=== PATIENT | female | born 1995 | race American Indian/Alaskan Native ===

== ENCOUNTER 2019-08-16 20:01 | Outpatient (CLI) | payer MEDICAID ==
[2019-08-16 20:55] VITALS: BP 93/52
[2019-08-16] MEDS ORDERED: LACTATED RINGERS 1,000 ML IV ONE (21:52)
--- NOTE | 2019-08-16 22:20 | Ultrasound Report ---
US OB BPP wo non-stress INDICATION / CLINICAL INFORMATION: pt fall CHARLES and BPP. COMPARISON: None available. FINDINGS: Biophysical profile score is 8 of 8. Signer Name: Watson Kenny MD Signed: 08/16/2019 10:16 PM Workstation Name: [email or web address]
--- NOTE | 2019-08-16 22:20 | Ultrasound Report ---
US OB limited INDICATION / CLINICAL INFORMATION: r/o abruption CHARLES and BPP. COMPARISON: None available. FINDINGS: A viable single intrauterine gestation is demonstrated in the cephalic presentation. heart rate is 142 bpm The grade 1 placenta is posteriorly located on maternal left side without evidence of abruption. Amniotic fluid volume appears normal. IMPRESSION: 1. Posterior placenta without evidence of abruption. 2. Single viable fetus in the cephalic presentation. Signer Name: Watson Kenny MD Signed: 08/16/2019 10:15 PM Workstation Name: [id number]
[2019-08-16 22:30] LABS: Bacteria,Urine 1+ /HPF (Negative); Bilirubin,Urine NEG (Negative); Blood,Urine NEG (Negative); Color,Urine Yellow (Yellow); Mucus,Urine FEW /HPF
== END 2019-08-16 23:05 | disposition home or self-care (01) ==
LOC: TRG 20:01
PROVIDERS: ATTEND Obstetrics & Gynecology
DX: O47.03 False labor before 37 completed weeks of gestation, third trimester (principal); Z3A.33 33 weeks gestation of pregnancy; W19.XXXA Unspecified fall, initial encounter; Y93.89 Activity, other specified; Y92.89 Other specified places as the place of occurrence of the external cause; Y99.8 Other external cause status
CPT/HCPCS: 59025; 76815; 76819; 81001; 96360; J7120

== ENCOUNTER 2019-09-13 23:13 | Inpatient (IN) | payer MEDICAID ==
[2019-09-14] MEDS: OSELTAMIVIR 75 MG CAP PO SCH ×2 (01:32→15:00)
[2019-09-14] MEDS: LACTATED RINGERS 1,000 ML IV SCH ×2 (01:32→09:56)
[2019-09-14 01:37] LABS: Hematocrit 26.4 % (30.3-42.9); Hemoglobin 9.1 gm/dl (10.1-14.3); Mean Corpuscular HGB Conc 34 % (30-34); Mean Corpuscular Volume 91 fl (79-97); Platelet Count 181 K/mm3 (140-440); Red Blood Count 2.91 M/mm3 (3.65-5.03); Red Cell Distribution Width 13.2 % (13.2-15.2)
[2019-09-14 02:01] LABS: Alanine Aminotransferase 18 units/L (7-56); Albumin 3.3 g/dL (3.9-5); BUN/Creatinine Ratio 7; Blood Urea Nitrogen 4 mg/dL (7-17); Calcium 8.3 mg/dL (8.4-10.2); Hemolysis Index 12
[2019-09-14] MEDS ORDERED: ACETAMINOPHEN 325 MG TAB PO PRN ×2 (02:41→05:09)
[2019-09-14] MEDS: guaiFENesin 100 MG/5 ML ORAL LIQD PO PRN ×2 (03:04→07:48)
--- NOTE | 2019-09-14 05:10 | History and Physical Report ---
History of Present Illness Date of examination: 09/14/19 Date of admission: 09/14/19 Chief complaint: Contractions, nasal congestion, runny nose, coughing, fever, chills, body aches, sore throat, cold sweats, SOB and wheezing History of present illness: 23yo G 3 P 1 at 37 weeks 5 days here with c/o contractions, nasal congestion, runny nose, coughing, fever, chills, body aches, sore throat, and cold sweats that started 5 days ago and worsening. She also reports SOB and wheezing. She took some Tylenol at home prior to coming to the hospital. She reports +FMs but denies VB or LOF. She reports feeling better after IV hydration and Robitussin. SOB and wheezing resolved. She is a [employer] pt who initiated care at 26 wk gestation. 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 LABS: AB+, Antibody Screen neg, RI, HBsAg neg, HIV neg, HSV II+, Diabetes Screen 71, GC/CT/Trich neg, GBS neg. Past History Past Medical History: no pertinent history Past Surgical History: no surgical history Social history: single, lives with family, full code. denies: smoking, alcohol abuse, prescription drug abuse, IV drug use - Obstetrical History Expected Date of Delivery: 09/29/19 Actual Gestation: 37 Week(s) 6 Day(s) : 3 Para: 1 Hx # Term Pregnancies: 1 Number of Pregnancies: 0 Spontaneous Abortions: 1 Induced : 0 Number of Living Children: 1 Medications and Allergies Allergies Allergy/AdvReac Type Severity Reaction Status Date / Time No Known Allergies Allergy Verified 08/16/19 20:27 Home Medications Medication Instructions Recorded Confirmed Last Taken Type Vit-Fe Fumar-FA [ 1 tab PO QDAY 09/14/19 09/14/19 1 Day Ago History Vitamin] ~09/13/19 Active Meds: Active Medications Acetaminophen (Tylenol) 650 mg PO Q8H PRN PRN Reason: Pain MILD(1-3)/Fever >100.5/GARCIA Last Admin: 09/14/19 03:03 Dose: 650 mg Documented by: Guaifenesin (Robitussin) 200 mg PO Q4H PRN PRN Reason: Cough Last Admin: 09/14/19 03:04 Dose: 200 mg Documented by: Lactated Ringer's (Lactated Ringers) 1,000 mls @ 125 mls/hr IV DIRECT ROSALES Last Admin: 09/14/19 01:32 Dose: 125 mls/hr Documented by: Oseltamivir Phosphate (Tamiflu) 75 mg PO BID ROSALES Stop: 09/18/19 10:01 Last Admin: 09/14/19 01:32 Dose: 75 mg Documented by: Review of Systems All systems: negative Constitutional: fever, chills, sweats Ears, nose, mouth and throat: nasal congestion, sore throat Cardiovascular: shortness of breath Respiratory: wheezing - Vital Signs Vital signs: Vital Signs Pulse BP 137 H 120/68 09/13/19 23:33 09/13/19 23:33 Temp Pulse Resp BP Pulse Ox 100 F H 109 H 110/69 99 09/14/19 02:30 09/14/19 04:59 09/14/19 04:22 09/14/19 04:59 - Physical Exam Cardiovascular: Regular rate Lungs: Positive: Clear to auscultation, Normal air movement Abdomen: Positive: normal appearance, soft - Obstetrical FHR: auscultation normal, category 1 FHR comments: baseline 150, moderate variability, 15x15 accels, no decels Uterine Contraction Monitor Mode: External Cervical Dilatation: 3.5 Cervical Effacement Percentage: 50 station: -2 Uterine Contraction Pattern: Irregular Results Result Diagrams: 09/14/19 01:24 09/14/19 01:24 Abnormal lab results 09/14/19 09/14/19 Range/Units 01:24 01:24 RBC 2.91 L (3.65-5.03) M/mm3 Hgb 9.1 L (10.1-14.3) gm/dl Hct 26.4 L (30.3-42.9) % Sodium 135 L (137-145) mmol/L Carbon Dioxide 18 L (22-30) mmol/L BUN 4 L (7-17) mg/dL Creatinine 0.6 L (0.7-1.2) mg/dL Calcium 8.3 L (8.4-10.2) mg/dL Albumin 3.3 L (3.9-5) g/dL All other labs normal. Assessment and Plan - Patient Problems (1) 37 weeks gestation of Current Visit: Yes Status: Acute (2) Influenza-like symptoms Current Visit: Yes Status: Acute Plan to address problem: Admit to L&D for 23-hour OBS with routine antepartum orders Rapid flu test negative; Rapid strep test negative Tamiflu, IV hydration, Tylenol and Robitussin prn initiated since patient is having flu-like symptoms CBC, CMP ordered If cervical dilation continues will admit for labor augmentation; if not anticipate discharge in 24 hrs (3) Tachycardia with heart rate 100-120 beats per minute Current Visit: Yes Status: Acute Plan to address problem: WBC 6.4 Pt is currently afebrile IV hydration in progress
[2019-09-14] MEDS: PRENATAL VIT27-FE FUMARATE-FOLIC ACID VIT TAB PO SCH ×2 (09:47→14:58)
[2019-09-14] MEDS: valACYclovir 500 MG TAB PO SCH ×2 (10:12→10:27)
[2019-09-14] MEDS ORDERED: BUTORPHANOL 2 MG/1 ML INJ IV PRN (11:44)
[2019-09-14] MEDS ORDERED: ePHEDrine SULFATE 50 MG/1 ML INJ IV PRN ×2 (11:44→14:17)
[2019-09-14] MEDS ORDERED: ONDANSETRON 4 MG/2 ML INJ IV PRN (11:44)
[2019-09-14] MEDS ORDERED: TERBUTALINE 1 MG/1 ML INJ IVP PRN (11:44)
[2019-09-14] MEDS ORDERED: NALOXONE 0.4 MG/1 ML INJ IV PRN (11:44)
[2019-09-14] MEDS ORDERED: LIDOCAINE (2%) 20 MG/1 ML VIAL 20 ML MDV INFILTRATI ONE (11:44)
[2019-09-14] MEDS ORDERED: TERBUTALINE 1 MG/1 ML INJ SUB-Q PRN (11:44)
[2019-09-14] MEDS ORDERED: MINERAL OIL 30 ML ORAL LIQD PO PRN (11:44)
--- NOTE | 2019-09-14 11:44 | Progress Note ---
Assessment and Plan A: IUP @ 37 5/7 Weeks Category I Tracing SROM GBS Negative P: Admit to L&D per Routine Orders Start Pitocin Augmentation Subjective - Subjective Date of service: 09/14/19 Patient reports: loss of fluid (large amount of clear fluid just started gushing out), movement normal, contractions, other (states s/s of flu have greatly improved) Objective - Vital Signs Vital Signs: Vital Signs - 12hr 09/13/19 09/13/19 09/13/19 23:46 23:51 23:56 Temperature Pulse Rate 121 H 115 H 119 H Respiratory Rate Blood Pressure Blood Pressure [Right] O2 Sat by Pulse 96 97 96 Oximetry 09/14/19 09/14/19 09/14/19 00:01 00:06 00:11 Temperature Pulse Rate 117 H 123 H 121 H Respiratory Rate Blood Pressure Blood Pressure [Right] O2 Sat by Pulse 96 95 96 Oximetry 09/14/19 09/14/19 09/14/19 00:13 00:50 02:30 Temperature 99.4 F 100 F H Pulse Rate 120 H Respiratory Rate Blood Pressure Blood Pressure [Right] O2 Sat by Pulse 94 Oximetry 09/14/19 09/14/19 09/14/19 04:00 04:19 04:22 Temperature 98.2 F Pulse Rate 118 H 109 H Respiratory Rate Blood Pressure 110/69 Blood Pressure [Right] O2 Sat by Pulse 97 Oximetry 09/14/19 09/14/19 09/14/19 04:24 04:29 04:34 Temperature Pulse Rate 114 H 117 H 108 H Respiratory Rate Blood Pressure Blood Pressure [Right] O2 Sat by Pulse 98 97 99 Oximetry 09/14/19 09/14/19 09/14/19 04:39 04:44 04:49 Temperature Pulse Rate 111 H 104 H 114 H Respiratory Rate Blood Pressure Blood Pressure [Right] O2 Sat by Pulse 98 98 97 Oximetry 09/14/19 09/14/19 09/14/19 04:54 04:56 04:59 Temperature Pulse Rate 102 H 105 H 109 H Respiratory Rate Blood Pressure Blood Pressure [Right] O2 Sat by Pulse 97 93 99 Oximetry 09/14/19 09/14/19 09/14/19 05:04 05:09 05:14 Temperature Pulse Rate 112 H 107 H 110 H Respiratory Rate Blood Pressure Blood Pressure [Right] O2 Sat by Pulse 99 99 100 Oximetry 09/14/19 09/14/19 09/14/19 05:19 05:24 05:29 Temperature Pulse Rate 107 H 109 H 110 H Respiratory Rate Blood Pressure Blood Pressure [Right] O2 Sat by Pulse 99 99 98 Oximetry 09/14/19 09/14/19 09/14/19 05:34 05:39 05:44 Temperature Pulse Rate 110 H 108 H 107 H Respiratory Rate Blood Pressure Blood Pressure [Right] O2 Sat by Pulse 99 99 96 Oximetry 09/14/19 09/14/19 09/14/19 05:49 05:54 05:59 Temperature Pulse Rate 105 H 107 H 105 H Respiratory Rate Blood Pressure Blood Pressure [Right] O2 Sat by Pulse 98 98 98 Oximetry 09/14/19 09/14/19 09/14/19 06:04 06:10 06:15 Temperature Pulse Rate 114 H 100 H 105 H Respiratory Rate Blood Pressure Blood Pressure [Right] O2 Sat by Pulse 81 L 98 62 L Oximetry 09/14/19 09/14/19 09/14/19 06:20 06:25 06:30 Temperature Pulse Rate 105 H 104 H 102 H Respiratory Rate Blood Pressure Blood Pressure [Right] O2 Sat by Pulse 95 97 97 Oximetry 09/14/19 09/14/19 09/14/19 06:35 06:40 06:43 Temperature Pulse Rate 105 H 104 H 93 H Respiratory Rate Blood Pressure Blood Pressure [Right] O2 Sat by Pulse 96 97 94 Oximetry 09/14/19 09/14/19 09/14/19 06:45 07:20 07:22 Temperature 98.6 F Pulse Rate 100 H 111 H 111 H Respiratory 20 Rate Blood Pressure 101/55 Blood Pressure 101/55 [Right] O2 Sat by Pulse 99 Oximetry 09/14/19 09/14/19 09/14/19 08:08 08:14 08:16 Temperature Pulse Rate 31 L 41 L Respiratory Rate Blood Pressure Blood Pressure [Right] O2 Sat by Pulse 48 L 74 L 73 L Oximetry 09/14/19 09/14/19 09/14/19 08:19 08:25 08:30 Temperature Pulse Rate 94 H 85 Respiratory Rate Blood Pressure Blood Pressure [Right] O2 Sat by Pulse 57 L 55 L 54 L Oximetry 09/14/19 09/14/19 09/14/19 08:36 08:41 08:44 Temperature Pulse Rate 96 H 57 L Respiratory Rate Blood Pressure Blood Pressure [Right] O2 Sat by Pulse 60 L 0 L 65 L Oximetry 09/14/19 09/14/19 08:46 10:13 Temperature Pulse Rate 57 L 53 L Respiratory Rate Blood Pressure Blood Pressure [Right] O2 Sat by Pulse 68 L 96 Oximetry - Exam Breasts: normal Cardiovascular: Regular rate Lungs: Clear to auscultation, Normal air movement Abdomen: Present: normal appearance, soft Uterus: Present: normal, firm, fundal height above umbilicus FHR: category 1 Uterine Contraction Monitor Mode: External Cervical Dilatation: 4.5 (leaking a large amount of clear fluid) Cervical Effacement Percentage: 70 station: -2 Uterine Contraction Pattern: Irregular Uterine Tone Measurement Phase: Resting Uterine Contraction Intensity: Moderate Extremities: normal - Labs Labs: Abnormal Labs 09/14/19 09/14/19 01:24 01:24 RBC 2.91 L Hgb 9.1 L Hct 26.4 L Sodium 135 L Carbon Dioxide 18 L BUN 4 L Creatinine 0.6 L Calcium 8.3 L Albumin 3.3 L Laboratory Results - last 24 hr 09/14/19 09/14/19 09/14/19 01:24 01:24 01:24 WBC 6.4 RBC 2.91 L Hgb 9.1 L Hct 26.4 L MCV 91 MCH 31 MCHC 34 RDW 13.2 Plt Count 181 Sodium 135 L Potassium 3.6 Chloride 102.8 Carbon Dioxide 18 L Anion Gap 18 BUN 4 L Creatinine 0.6 L Estimated GFR > 60 BUN/Creatinine Ratio 7 Glucose 79 Calcium 8.3 L Total Bilirubin 0.50 AST 27 ALT 18 Alkaline Phosphatase 111 Total Protein 6.3 Albumin 3.3 L Albumin/Globulin Ratio 1.1 Influenza A (Rapid) Negative Influenza B (Rapid) Negative Group A Strep Rapid 09/14/19 05:02 WBC RBC Hgb Hct MCV MCH MCHC RDW Plt Count Sodium Potassium Chloride Carbon Dioxide Anion Gap BUN Creatinine Estimated GFR BUN/Creatinine Ratio Glucose Calcium Total Bilirubin AST ALT Alkaline Phosphatase Total Protein Albumin Albumin/Globulin Ratio Influenza A (Rapid) Influenza B (Rapid) Group A Strep Rapid Negative
[2019-09-14] MEDS ORDERED: OXYTOCIN DRIP 30 UNITS/500 ML BAG IV SCH (12:00)
[2019-09-14] MEDS ORDERED: LACTATED RINGERS 1,000 ML IV SCH (12:00)
[2019-09-14 12:21] LABS: Hematocrit 25.8 % (30.3-42.9); Hemoglobin 8.8 gm/dl (10.1-14.3); Mean Corpuscular HGB Conc 34 % (30-34); Mean Corpuscular Volume 91 fl (79-97); Platelet Count 174 K/mm3 (140-440); Red Blood Count 2.83 M/mm3 (3.65-5.03); Red Cell Distribution Width 13.5 % (13.2-15.2)
[2019-09-14] MEDS ORDERED: DEXMEDETOMIDINE 200 MCG/2 ML VIAL IV ONE (13:39)
[2019-09-14] MEDS ORDERED: NALOXONE 2 MG/2 ML INJ IV PRN (14:17)
--- NOTE | 2019-09-14 14:21 | Anesthesia Consultation ---
Anesthesia Consult and Med Hx Date of service: 09/14/19 - Airway Anesthetic Teeth Evaluation: Poor ROM Head & Neck: Adequate Mental/Hyoid Distance: Adequate Mallampati Class: Class II Intubation Access Assessment: Probably Good - Pulmonary Exam CTA: No (wheezing, URI ) - Cardiac Exam Cardiac Exam: RRR - Pre-Operative Health Status ASA Pre-Surgery Classification: ASA2 Proposed Anesthetic Plan: Epidural - Pulmonary Hx Smoking: Yes (quit 9 months ago) Hx Asthma: No Hx Respiratory Symptoms: Yes (URI) SOB: No COPD: No Home Oxygen Therapy: No Hx Pneumonia: No Hx Sleep Apnea: No - Cardiovascular System Hx Hypertension: No Hx Coronary Artery Disease: No Hx Heart Attack/AMI: No Hx Angina: No Hx Percutaneous Transluminal Coronary Angioplasty (PTCA): No Hx Cardia Arrhythmia: No Hx Pacemaker: No Hx Internal Defibrillator: No Hx Valvular Heart Disease: No Hx Heart Murmur: No Hx Peripheral Vascular Disease: No - Central Nervous System Hx Neuromuscular Disorder: No Hx Seizures: No CVA: No Hx Back Pain: No Hx Psychiatric Problems: No - Gastrointestinal Hx Ulcer: No Hx Gastroesophageal Reflux Disease: No - Endocrine Hx Renal Disease: No Hx End Stage Renal Disease: No Hx Cirrhosis: No Hx Liver Disease: No Hx Insulin Dependent Diabetes: No Hx Non-Insulin Dependent Diabetes: No Hx Thyroid Disease: No Hx Hypothyroidism: No Hx Hyperthyroidism: No - Hematic Hx Anemia: Yes Hx Sickle Cell Disease: No - Other Systems Hx Alcohol Use: No Hx Substance Use: No Hx Cancer: No Hx Obesity: No
[2019-09-14] MEDS ORDERED: fentaNYL-BUPIV 2 MCG/ML-0.125% 200 MCG/100 ML BAG EPIDURAL SCH (15:00)
[2019-09-14] MEDS ORDERED: miSOPROStol 200 MCG TAB ONE (15:51)
[2019-09-14] MEDS ORDERED: OXYTOCIN 10 UNIT/1 ML INJ ONE (15:52)
[2019-09-14] MEDS ORDERED: HYDROcodone/ACETAMINOPHEN 5-325 MG TAB PO PRN (16:05)
[2019-09-14] MEDS ORDERED: diphenhydrAMINE 25 MG CAP PO PRN (16:05)
[2019-09-14] MEDS: OXYTOCIN 20 UNIT/1000ML DRIP 20 UNITS/1,000 ML BAG IV SCH ×2 (16:08→16:55)
--- NOTE | 2019-09-14 16:19 | Procedure Note ---
OB Delivery Note - Delivery Date of Delivery: 09/14/19 (1544) Surgeon: CONCHIS CESAR Estimated blood loss: other (350) - Vaginal Delivery presentation: vertex Delivery position: OA Delivery induction: oxytocin Delivery augmentation: pitocin Delivery monitor: external FHT, external uterine Route of delivery: Delivery placenta: spontaneous Delivery cord: 3 umbilical vessels Episiotomy: none Delivery laceration: none Anesthesia: epidural Delivery comments: of a live 6'0 male over a intact perineum under epidural anesthesia with Apgars of 8 and 9 at 1544 on 09/14/2019. Infant directly to maternal abd/chest, skin to skin contact. Spontaneous delivery of placenta complete and intact with Valle side presenting at 1548. Heavy uterine bleeding with placental delivery. 1000mcg of Cytotec placed per rectum; 10U of Pitocin given IM. Uterine bleeding became light with external uterine massage. Delayed cord clamping and cutting; Cord cut by Father of the Baby. - A at 1 minute: 8 at 5 minutes: 9 Gender: Male (6'0)
[2019-09-14] MEDS: FERROUS SULFATE 325 MG TAB PO SCH (23:07)
[2019-09-14] MEDS: IBUPROFEN 600 MG TAB PO SCH (23:07)
[2019-09-15] MEDS: IBUPROFEN 600 MG TAB PO SCH ×5 (04:43→21:18)
[2019-09-15 04:47] LABS: Hematocrit 23.6 % (30.3-42.9)
--- NOTE | 2019-09-15 09:38 | Progress Note ---
Assessment and Plan - Patient Problems (1) Status post normal vaginal delivery Current Visit: Yes Status: Acute Plan to address problem: Request to d/c home today, will d/c after 24 hrs delivery if baby ok'd for d/c F/U at office in 6 wks for routine PP visit or prn (2) Anemia Current Visit: Yes Status: Acute Qualifiers: Anemia type: iron deficiency Plan to address problem: Asymptomatic Continue daily oral iron supplementation as directed Increase iron rich foods into diet Increase water intake and green leafy vegetables Subjective - Subjective Date of service: 09/15/19 Principal diagnosis: S/P ; PPD#1 Interval history: See admission H & P; OB delivery summary and PP progress note Patient reports: appetite normal, voiding normally, pain well controlled, flatus, ambulating normally, other (Desires to go home today. Informed that she may d/c home after 24hr PP as long as baby is ok'd for d/c, verbalized understanding), no bowel movement : bottle feeding Objective - Vital Signs Latest vital signs: Vital Signs Temp Pulse Resp BP BP Pulse Ox 09/15/19 09:10 98.2 F 80 20 113/71 09/15/19 04:50 97.8 F 74 18 110/79 98 09/15/19 01:54 97.7 F 68 18 110/78 100 09/14/19 19:46 98.2 F 89 20 101/60 95 09/14/19 19:27 98.2 F 83 20 114/83 100 09/14/19 18:28 76 126/76 09/14/19 18:13 86 132/89 09/14/19 18:01 98.2 F 71 137/86 09/14/19 17:28 79 131/80 09/14/19 17:13 67 130/83 09/14/19 16:58 73 130/72 09/14/19 16:41 73 122/84 09/14/19 16:36 76 120/82 09/14/19 16:31 80 118/76 09/14/19 16:26 78 129/79 09/14/19 16:21 80 128/80 09/14/19 16:16 88 121/78 09/14/19 16:11 85 124/77 09/14/19 16:06 88 111/64 09/14/19 16:01 97 H 114/77 09/14/19 15:56 88 117/80 09/14/19 15:51 96 H 110/91 09/14/19 15:44 103 H 140/68 09/14/19 15:42 70 100 09/14/19 15:37 72 95 09/14/19 15:33 84 92 09/14/19 15:32 87 131/62 96 09/14/19 15:31 84 160/56 09/14/19 15:27 88 99 09/14/19 15:25 27 L 80 L 09/14/19 15:22 82 99 09/14/19 15:17 93 H 100 09/14/19 15:16 102 H 121/69 09/14/19 15:12 103 H 99 09/14/19 15:07 112 H 100 09/14/19 15:02 97 H 100 09/14/19 14:59 88 115/64 09/14/19 14:57 95 H 100 09/14/19 14:55 85 114/66 09/14/19 14:52 96 H 100 09/14/19 14:49 94 H 119/61 09/14/19 14:47 85 100 09/14/19 14:43 85 120/58 09/14/19 14:42 97 H 126/57 100 09/14/19 14:41 101 H 84/51 09/14/19 14:40 88 112/62 09/14/19 14:39 86 107/59 09/14/19 14:38 86 116/63 09/14/19 14:37 87 124/59 100 09/14/19 14:33 108 H 94/59 09/14/19 14:32 97 H 93/54 100 09/14/19 14:31 102 H 93/51 09/14/19 14:29 100 H 100/55 09/14/19 14:28 102 H 81/50 09/14/19 14:27 83 100 09/14/19 14:26 100 H 65/33 09/14/19 14:24 91 H 81/50 09/14/19 14:23 91 H 74/47 09/14/19 14:22 84 100 09/14/19 14:21 84 94/53 09/14/19 14:20 88 72/44 09/14/19 14:19 83 79/41 09/14/19 14:18 86 81/42 09/14/19 14:17 94 H 89/43 97 09/14/19 14:16 88 86/52 93 09/14/19 14:15 55 L 85/51 09/14/19 14:13 54 L 73/36 09/14/19 14:12 82 90/52 97 09/14/19 14:11 97 H 97/52 09/14/19 14:10 94 H 93/54 09/14/19 14:09 94 H 97/54 09/14/19 14:08 104 H 109/55 09/14/19 14:07 108 H 112/59 97 09/14/19 14:06 89 106/67 09/14/19 14:05 96 H 116/74 09/14/19 14:04 94 H 112/70 09/14/19 14:03 96 H 103/57 94 09/14/19 14:02 91 H 113/54 97 09/14/19 14:01 92 H 122/56 09/14/19 14:00 94 H 114/70 09/14/19 13:59 99 H 113/67 09/14/19 13:58 100 H 117/60 09/14/19 13:57 106 H 146/74 100 09/14/19 13:56 111 H 145/69 09/14/19 13:54 92 H 94 09/14/19 13:53 85 151/69 09/14/19 13:52 78 142/70 98 09/14/19 13:51 90 144/76 09/14/19 13:50 82 115/56 09/14/19 13:49 81 123/62 09/14/19 13:48 93 H 154/75 09/14/19 13:47 94 H 100 09/14/19 13:46 85 120/61 09/14/19 13:45 86 127/73 09/14/19 13:44 93 H 118/67 94 09/14/19 13:43 90 115/70 09/14/19 13:42 92 H 95 09/14/19 13:36 89 125/67 09/14/19 13:07 90 117/74 09/14/19 12:36 92 H 108/61 09/14/19 10:16 86 09/14/19 10:13 53 L 96 Intake and Output 09/14/19 09/15/19 09/15/19 23:59 07:59 15:59 Intake Total 97.917 240 Output Total 200 200 Balance -102.083 -200 240 Intake: IV 97.917 PITOCin/NS 20 UNIT/1000ML 97.917 DRIP 20 units In 1,000 ml @ 125 mls/hr IV DIRECT ROSALES Rx#:[id number] Oral 240 Output: Urine 200 200 Self-Catheterization 200 Void 200 Other: Total, Intake Amount 240 Total, Output Amount 200 200 # Voids Void 1 1 - Exam Breasts: Present: normal Cardiovascular: Present: Regular rate Lungs: Present: Normal air movement Abdomen: Present: soft Uterus: Present: firm, fundal height below umbilicus (U-1) Extremities: Present: edema (Srikanth feet/ankles) Deep Tendon Reflex Grade: Normal +2 - Labs Labs: Abnormal lab results 09/14/19 09/15/19 Range/Units 11:55 04:37 RBC 2.83 L (3.65-5.03) M/mm3 Hgb 8.8 L 8.0 L (10.1-14.3) gm/dl Hct 25.8 L 23.6 L (30.3-42.9) %
--- NOTE | 2019-09-15 09:45 | Discharge Summary ---
Providers - Providers Date of Admission: 09/14/19 12:38 Date of discharge: 09/15/19 (1600) Attending physician: GERMAIN SOLIS MD Primary care physician: GERMAIN SOLIS MD Hospitalization Reason for admission: active labor, IUP at term Delivery: Episiotomy: none Laceration: none Incision: normal Other procedures: none complications: none Discharge diagnosis: IUP at term delivered, other (Anemia) baby: male Hospital course: See admission H & P; OB delivery summary and PP progress note Condition at discharge: Stable Disposition: DC- TO HOME OR SELFCARE - Discharge Diagnoses (1) Status post normal vaginal delivery Status: Acute (2) Anemia Status: Acute Qualifiers: Anemia type: iron deficiency Plan - Discharge Medications Prescriptions: Docusate Sodium [Colace CAP] 100 mg PO BID 30 Days #60 capsule Ferrous Sulfate [Feosol 325 MG tab] 325 mg PO BID 30 Days #60 tablet - Provider Discharge Summary Activity: routine, no sex for 6 weeks, no heavy lifting 4 weeks, no strenuous exercise Diet: other (Iron rich diet) Instructions: routine Additional instructions: [] Smoking cessation referral if applicable(refer to patient education folder for contact #) [] Refer to [facility] Booklet Call your doctor immediately for: * Fever > 100.5 * Heavy vaginal bleeding ( >1 pad per hour) * Severe persistent headache * Shortness of breath * Reddened, hot, painful area to leg or breast - Follow up plan Follow up: GERMAIN SOLIS MD [Primary Care Provider] - 6 Weeks
[2019-09-15] MEDS: DOCUSATE SODIUM 100 MG CAP PO SCH ×2 (10:03→21:18)
[2019-09-15] MEDS: FERROUS SULFATE 325 MG TAB PO SCH ×2 (10:03→21:18)
[2019-09-15] MEDS: PRENATAL VIT27-FE FUMARATE-FOLIC ACID VIT TAB PO SCH (10:03)
[2019-09-16] MEDS: IBUPROFEN 600 MG TAB PO SCH ×2 (04:15→09:58)
[2019-09-16] MEDS: PRENATAL VIT27-FE FUMARATE-FOLIC ACID VIT TAB PO SCH (09:58)
[2019-09-16] MEDS: FERROUS SULFATE 325 MG TAB PO SCH (09:58)
[2019-09-16] MEDS: DOCUSATE SODIUM 100 MG CAP PO SCH (09:58)
[2019-09-16 13:17] VITALS: BP 126/85
== END 2019-09-16 14:30 | disposition home or self-care (01) | DRG 774 ==
LOC: TRG 23:13 → LD 09-14 01:30 → TRG 09-14 12:36 → LD 09-14 12:38 → OB 09-14 19:48
PROVIDERS: ADMIT Obstetrics & Gynecology; ATTEND Obstetrics & Gynecology
PROC: 10E0XZZ Delivery of Products of Conception, External Approach (ICD-10-PCS; principal; 2019-09-14)
PROC: 3E033VJ Introduction of Other Hormone into Peripheral Vein, Percutaneous Approach (ICD-10-PCS; 2019-09-14)
PROC: 3E0R3BZ Introduction of Anesthetic Agent into Spinal Canal, Percutaneous Approach (ICD-10-PCS; 2019-09-14)
PROC: 00HU33Z Insertion of Infusion Device into Spinal Canal, Percutaneous Approach (ICD-10-PCS; 2019-09-14)
DX: O99.42 Diseases of the circulatory system complicating childbirth (principal); Z3A.37 37 weeks gestation of pregnancy; Z37.0 Single live birth; O90.81 Anemia of the puerperium; D64.9 Anemia, unspecified; R00.0 Tachycardia, unspecified
CPT/HCPCS: 36415; 59025; 80053; 85014; 85018; 85027; 86850; 86900; 86901; 87116; 87400; 87430; 96360; G0378; J0595; J2590; J3490; J7120